=== PATIENT | female | born 1975 | race Caucasian/White ===

== ENCOUNTER → 2017-11-20 | Outpatient (CLI) | payer OTHER, BC ==
--- NOTE | 2017-11-20 12:45 | RAD ---
DATE: 11/20/2017 EXAM: MAMMO TYESHA SCREENING BILATERAL HISTORY: Routine screening COMPARISON: 11/06/2014 This study was interpreted with the benefit of Computerized Aided Detection (CAD). The breast parenchyma shows scattered fibroglandular densities. Breast parenchyma level B. FINDINGS: 2-D and 3-D tomosynthesis imaging was performed in CC and MLO projections. The fibroglandular tissues are heterogeneous and somewhat nodular in character. There is a smooth oval-shaped nodule with a hilar lucency in the inferomedial aspect of the left breast, most compatible with an intramammary lymph node. It appears to have been present on the previous study but is better delineated on the current 3-D view compared to the previous 2-D examination. There is an additional small elongated smooth nodule located just anterior to this first nodule in the lateral aspect of the left breast. No spiculated nodule or suspicious breast densities are seen. No suspicious microcalcifications are evident. IMPRESSION: There is no mammographic evidence of malignancy in either breast. Follow-up bilateral mammography in one year is suggested. BI-RADS CATEGORY: 2 BENIGN FINDING(S) RECOMMENDED FOLLOW-UP: 12M 12 MONTH FOLLOW-UP PQRS compliance statement: Patient information was entered into a reminder system with a target due date for the next mammogram. Mammography is a sensitive method for finding small breast cancers, but it does not detect them all and is not a substitute for careful clinical examination. A negative mammogram does not negate a clinically suspicious finding and should not result in delay in biopsying a clinically suspicious abnormality. "Our facility is accredited by the [employer] Mammography Program."
== END | disposition home or self-care (01) ==
LOC: MAMMO 08:14
PROVIDERS: ATTEND Nurse Practitioner Family
DX: Z12.31 Encounter for screening mammogram for malignant neoplasm of breast (principal)
CPT/HCPCS: 77063; 77067

== ENCOUNTER 2019-08-10 20:58 | Emergency (ER) | payer OTHER, BC ==
[~2019-08-10] VITALS: Ht 160 cm; Wt 74.4 kg
[2019-08-10] MEDS ORDERED: ACET500T68 PO (21:26)
[2019-08-10] MEDS ORDERED: MORPHINE SULFATE 4 MG/ML DISP.SYRIN. IV ONE ×2 (21:30→22:15)
[2019-08-10] MEDS ORDERED: IOHEXOL 300 MG/ML 75 ML VIAL. IV ONE (21:30)
[2019-08-10] MEDS ORDERED: CONTRAST GIVEN MC PRN (21:30)
[2019-08-10] MEDS ORDERED: ONDANSETRON PF 4 MG/2 ML VIAL. IVP ONE ×2 (21:30→22:15)
--- NOTE | 2019-08-10 21:34 | PHYS DOC ---
Adult General Chief Complaint Chief Complaint: ABDOMINAL PAIN HPI HPI 44-year-old female presents with right-sided abdominal pain. The patient had a tummy tuck and breast augmentation surgery about 3 weeks ago. She had her drain taken out 3 days ago. The day after the drain was removed she had some serosa nguineous fluid from the drain site, but that stopped. Yesterday the patient began to have right-sided abdominal pain and again to feel more full in the abdomen. Today it is much worse her pain is severe. She feels like she is very bloated and that there might be a mass on the right side along the incision site. She denies fever or chills. She called her surgeon and he advised she come to the emergency room. Review of Systems Review of Systems Constitutional: Denies fever or chills [] Eyes: Denies change in visual acuity, redness, or eye pain [] HENT: Denies nasal congestion or sore throat [] Respiratory: Denies cough or shortness of breath [] Cardiovascular: No additional information not addressed in HPI [] GI: Right lower quadrant abdominal pain [] : Denies dysuria or hematuria [] Musculoskeletal: Denies back pain or joint pain [] Integument: Denies rash or skin lesions [] Neurologic: Denies headache, focal weakness or sensory changes [] Endocrine: Denies polyuria or polydipsia [] All other systems were reviewed and found to be within normal limits, except as documented in this note. Current Medications Current Medications Current Medications Medications (Trade) Dose Ordered Sig/Rafi Start Time Stop Time Status Last Admin Dose Admin Info (Do NOT chart on this entry -- for MONITORING) 1 each PRN DAILY PRN 08/10/19 21:30 08/12/19 21:29 Iohexol (Omnipaque 300 Mg/ml) 75 ml 1X ONCE 08/10/19 21:30 08/10/19 21:31 Morphine Sulfate (Morphine 4mg Syringe) 4 mg 1X ONCE 08/10/19 21:30 08/10/19 21:31 Ondansetron HCl (Zofran) 4 mg 1X ONCE 08/10/19 21:30 08/10/19 21:31 Allergies Allergies Allergies Coded Allergies Type Severity Reaction Last Updated Verified No Known Drug Allergies 08/10/19 No Physical Exam Physical Exam Constitutional: Well developed, well nourished, no acute distress, non-toxic appearance. [] HENT: Normocephalic, atraumatic, bilateral external ears normal, oropharynx moist, no oral exudates, nose normal. [] Eyes: PERRLA, EOMI, conjunctiva normal, no discharge. [] Neck: Normal range of motion, no tenderness, supple, no stridor. [] Cardiovascular:Heart rate regular rhythm, no murmur [] Lungs & Thorax: Bilateral breath sounds clear to auscultation [] Abdomen: Bowel sounds normal, right lower quadrant with moderate to severe tenderness in possible palpable mass along the incision line. [] Skin: Clean dry and intact incisions of the lower abdomen, and bilateral breasts. No sign of cellulitis.[] Back: No tenderness, no CVA tenderness. [] Extremities: No tenderness, no cyanosis, no clubbing, ROM intact, no edema. [] Neurologic: Alert and oriented X 3, normal motor function, normal sensory function, no focal deficits noted. [] Psychologic: Affect normal, judgement normal, mood normal. [] EKG EKG [] Radiology/Procedures Radiology/Procedures [] Course & Med Decision Making Course & Med Decision Making Pertinent Labs and Imaging studies reviewed. (See chart for details) Asians labs are unremarkable. The CT of her abdomen and pelvis shows significant fluid collection, likely a seroma. I discussed these results with her surgeon, Dr. Flores and he has requested the patient be transferred to the emergency room at [facility]. The patient is in agreement with transfer to this facility. The transfer center for [facility] accepted the patient for transfer from ER to ER. Dr. Flores will see the patient in that emergency room. She will go by ambulance. [] Dragon Disclaimer Dragon Disclaimer This electronic medical record was generated, in whole or in part, using a voice recognition dictation system. Departure Departure: Impression: Primary Impression: Abdominal wall seroma Disposition: XFER SHT-TRM HOSP Condition: STABLE Referrals: ANJALI NGUYEN MD (PCP) Problem Qualifiers Primary Impression: Abdominal wall seroma Encounter type: initial encounter Qualified Codes: S30.1XXA - Contusion of abdominal wall, initial encounter BASHIR WINN DO Aug 10, 2019 21:34
[2019-08-10 21:51] LABS: BILIRUBIN,URINE NEG (NEG); CLARITY,URINE CLEAR; COLOR,URINE STRAW; GLUCOSE,URINE NEG (NEG)
[2019-08-10 21:52] LABS: BACTERIA,URINE FEW /HPF (0-FEW); NITRITE,URINE NEG (NEG); SQUAMOUS EPITHELIAL CELL,UR FEW /LPF; UROBILINOGEN,URINE 0.2 mg/dL (0.2 mg/dL); WBC,URINE OCC /HPF (0-4)
[2019-08-10 21:59] LABS: BASO % 1 % (0-3); EOS # 0.3 x10^3/uL (0.0-0.7); EOS % 3 % (0-3); HEMATOCRIT 38.4 % (36.0-47.0); LYMPH # 3.2 x10^3/uL (1.0-4.8); LYMPH % 34 % (24-48); MEAN CORPUSCULAR HEMOGLOBIN 32 pg (25-35); MEAN CORPUSCULAR HGB CONC 34 g/dL (31-37); MEAN CORPUSCULAR VOLUME 93 fL (79-100); MONO # 0.9 x10^3/uL (0.0-1.1); MONO % 10 % (0-9); NEUT # 4.8 x10^3uL (1.8-7.7); NEUT % 53 % (31-73); PLATELET COUNT 319 x10^3/uL (140-400); RED BLOOD COUNT 4.12 x10^6/uL (3.50-5.40); RED CELL DISTRIBUTION WIDTH 13.5 % (11.5-14.5); WHITE BLOOD COUNT 9.2 x10^3/uL (4.0-11.0)
[2019-08-10 22:18] LABS: CALCIUM 8.4 mg/dL (8.5-10.1); CREATININE 0.6 mg/dL (0.6-1.0); GFR 108.1; POTASSIUM 3.7 mmol/L (3.5-5.1)
[2019-08-10 22:24] LABS: ALBUMIN 3.5 g/dL (3.4-5.0); ALBUMIN/GLOBULIN RATIO 0.9 (1.0-1.7); TOTAL BILIRUBIN 0.1 mg/dL (0.2-1.0); TOTAL PROTEIN 7.3 g/dL (6.4-8.2)
--- NOTE | 2019-08-10 22:56 | RAD ---
Examination: CT ABD PELV W/ IV CONTRST ONLY History: Right lower quadrant pain. Recent plastic surgery. Comparison/Correlation: None Findings: Axial images of the abdomen and pelvis were obtained following IV contrast. Sagittal and coronal reformatted images were provided. Bilateral breast implants are partially seen. Visualized lung bases are clear. Liver, spleen, pancreas, and adrenal glands are normal. Gallbladder fossa is unremarkable. Right kidney is unremarkable. Left renal lower pole calyceal calculus measuring 0.56 cm diameter noted. There are 2 additional small calculi present in the left lower pole calyces. Left renal lesions which additional characterize probably representing cysts are present. Minimal fullness of the left renal pelvis noted. Urinary bladder unremarkable. Diverticulosis of the colon is present. No inflammatory change about the cecum. Appendix is normal. Hysterectomy noted. Small umbilical hernia contains mesenteric fat. Fluid collection at the right lower flank region is present measuring 4.3 cm longitudinal by 13.5 cm anteroposterior by by 3 cm transverse. It is of simple fluid density. At the left lateral flank region within the subcutaneous fat at the iliac crest level, there is a 2 cm maximum diameter collection. Small fluid collection is present at the left infraumbilical region measuring up to 1.1 cm. No suspicious enhancement identified to involve the collections. Impression: Postoperative seroma or other fluid collection involving the right lower flank subcutaneous fat region at the level of the right iliac crest. Additional smaller collections also seen at other sites. No rim enhancement to suggest abscess or inflammatory components. Appendix is normal. Nonobstructive left renal calculi. Diverticulosis. PQRS Compliance Statement: One or more of the following individualized dose reduction techniques were utilized for this examination: 1. Automated exposure control 2. Adjustment of the mA and/or kV according to patient size 3. Use of iterative reconstruction technique Electronically signed by: Jarrett Saenz MD (08/10/2019 10:53 PM) [facility]
[2019-08-10] MEDS ORDERED: HYDROmorphone PF 2 MG/ML VIAL IV ONE (23:15)
[2019-08-11] MEDS ORDERED: PROCHLORPERAZINE 10 MG/2 ML VIAL. ONE (01:05)
[2019-08-11] MEDS ORDERED: PROCHLORPERAZINE 10 MG/2 ML VIAL. IV ONE (01:15)
[2019-08-11 02:25] VITALS: BP 110/65
[2019-08-11] MEDS ORDERED: HYDROmorphone PF 2 MG/ML VIAL IV ONE (02:30)
== END 2019-08-11 02:28 | disposition short-term general hospital (02) ==
LOC: ER 20:58
DX: S30.1XXA Contusion of abdominal wall, initial encounter (principal); Z98.890 Other specified postprocedural states; X58.XXXA Exposure to other specified factors, initial encounter; Y93.89 Activity, other specified; Y92.89 Other specified places as the place of occurrence of the external cause; Y99.8 Other external cause status
CPT/HCPCS: 36415; 74177; 80053; 81001; 85025; 96374; 96375; 96376; 99285; J0780; J1170; J2270; J2405; Q9967

== ENCOUNTER 2019-10-09 14:16 | Emergency (ER) | payer OTHER, BC ==
[~2019-10-09] VITALS: Ht 160 cm; Wt 75.1 kg
[~2019-10-09 14:16] MED LIST: ACET500T68 PO
[2019-10-09] MEDS ORDERED: IV NORMAL SALINE 1,000ML 1,000 ML IV SCH (14:24)
[2019-10-09] MEDS ORDERED: KETOROLAC 30 MG/ML VIAL. IVP ONE (14:30)
[2019-10-09] MEDS ORDERED: ONDANSETRON PF 4 MG/2 ML VIAL. IVP ONE (14:30)
[2019-10-09] MEDS: HYDROmorphone PF 1 MG/ML DISP.SYRIN IV/SQ PRN ×4 (14:39→16:58)
[2019-10-09 14:52] LABS: BASO % 1 % (0-3); EOS # 0.3 x10^3/uL (0.0-0.7); EOS % 3 % (0-3); HEMATOCRIT 43.2 % (36.0-47.0); HEMOGLOBIN 14.1 g/dL (12.0-15.5); LYMPH # 2.4 x10^3/uL (1.0-4.8); LYMPH % 27 % (24-48); MEAN CORPUSCULAR HEMOGLOBIN 30 pg (25-35); MEAN CORPUSCULAR HGB CONC 33 g/dL (31-37); MEAN CORPUSCULAR VOLUME 93 fL (79-100); MONO # 0.7 x10^3/uL (0.0-1.1); MONO % 8 % (0-9); NEUT # 5.3 x10^3uL (1.8-7.7); NEUT % 61 % (31-73); PLATELET COUNT 272 x10^3/uL (140-400); RED BLOOD COUNT 4.66 x10^6/uL (3.50-5.40); RED CELL DISTRIBUTION WIDTH 13.1 % (11.5-14.5); WHITE BLOOD COUNT 8.7 x10^3/uL (4.0-11.0)
[2019-10-09 15:06] LABS: ALBUMIN/GLOBULIN RATIO 1.1 (1.0-1.7); CALCIUM 9.5 mg/dL (8.5-10.1); CREATININE 0.7 mg/dL (0.6-1.0); GFR 90.5; POTASSIUM 3.7 mmol/L (3.5-5.1); TOTAL BILIRUBIN 0.2 mg/dL (0.2-1.0); TOTAL PROTEIN 7.8 g/dL (6.4-8.2)
[2019-10-09 15:28] LABS: BILIRUBIN,URINE NEG (NEG); CLARITY,URINE CLEAR; COLOR,URINE YELLOW; GLUCOSE,URINE NEG (NEG)
[2019-10-09 15:29] LABS: BACTERIA,URINE FEW /HPF (0-FEW); NITRITE,URINE NEG (NEG); SQUAMOUS EPITHELIAL CELL,UR FEW /LPF; UROBILINOGEN,URINE 0.2 mg/dL (0.2 mg/dL); WBC,URINE OCC /HPF (0-4)
--- NOTE | 2019-10-09 15:40 | RAD ---
CT STUDY OF THE ABDOMEN AND PELVIS WITHOUT CONTRAST CLINICAL INDICATIONS: Flank pain. Possible urinary tract stone. TECHNIQUE: Noncontrast helical CT scanning of the abdomen and pelvis was performed. Without contrast, the sensitivity to detect organ pathology and GI tract pathology is decreased. PQRS compliance Statement One or more of the following individualized dose reduction techniques were utilized for this study: 1. Automated exposure control 2. Adjustment of the mA and/or kV according to patient size 3. Use of iterative reconstruction technique COMPARISON: August 10, 2019. FINDINGS: The liver and spleen and pancreas are homogeneous in appearance on this noncontrast study. Gallbladder is normal and no extrahepatic biliary ductal dilatation is seen. No adrenal mass is evident. Medullary sponge kidney is seen bilaterally. Small stones of the lower pole of the left kidney are seen. There is moderate hydronephrosis and hydroureter all way down to the UVJ on the left side. At the UVJ, there is a stone measuring 5 mm in size. No hydronephrosis or hydroureter is seen on the right side. Urinary bladder is moderately distended and the urinary bladder wall is smooth. Uterus appears surgically absent. There is a left ovarian cyst measuring 27 mm in size. This is new. Small amount of free fluid is seen within the cul-de-sac around the vaginal cuff. The appendix is normal. No obstructive bowel pattern is seen. No free intraperitoneal air is seen. No mesenteric edema is seen. No focal aneurysmal dilatation of the abdominal aorta is seen. No enlarged abdominal or pelvic lymphadenopathy is evident. No lung base consolidation is evident. No lytic process is seen. IMPRESSION: Moderate left-sided hydronephrosis and hydroureter due to a 5 mm distal left ureteral stone at the UVJ. There are 2 additional small stones of the left kidney. Medullary sponge kidney bilaterally. New finding of 27 mm left ovarian cyst with a small amount of free fluid in the cul-de-sac. Electronically signed by: Gorge Arriaza MD (10/09/2019 3:37 PM) [facility]
--- NOTE | 2019-10-09 15:51 | PHYS DOC ---
Past History Past Medical History: GERD, Kidney Stones, Migraines, UTI Past Surgical History: Hysterectomy, Tonsillectomy, Other Additional Past Surgical Histo: trigger finger release on rt thumb Alcohol Use: Rarely Drug Use: None Adult General Chief Complaint Chief Complaint: PAIN ON URINATION [facility] HPI Patient is a 44-year-old female who presents with complaint of lower abdominal discomfort, feeling like she has to urinate but is having difficulty with urination. Patient states she has a history of kidney stones and is worried that she may have another kidney stone again. Patient has had to have lithotripsy 3 in the past. Patient rates her pain at an 8 out of 10 and states that she has also had some nausea. She is had no vomiting however. Patient denies any fever. She does indicate that the pain radiates into her back at times.[] Review of Systems Review of Systems Constitutional: Denies fever or chills [] Respiratory: Denies cough or shortness of breath [] Cardiovascular: No additional information not addressed in HPI [] GI: Complains of lower abdominal pain with nausea. Denies vomiting or diarrhea [] : Complains of dysuria[] Musculoskeletal: Complains of lower back pain pain [] All other systems were reviewed and found to be within normal limits, except as documented in this note. Current Medications Current Medications Current Medications Medications (Trade) Dose Ordered Sig/[facility] Start Time Stop Time Status Last Admin Dose Admin Hydromorphone HCl (Dilaudid) 0.5 mg PRN Q15MIN PRN 10/09/19 14:30 10/10/19 14:29 10/09/19 14:39 0.5 MG Ketorolac Tromethamine (Toradol 30mg Vial) 30 mg 1X ONCE 10/09/19 14:30 10/09/19 14:48 DC 10/09/19 14:40 30 MG Ondansetron HCl (Zofran) 4 mg 1X ONCE 10/09/19 14:30 10/09/19 14:48 DC 10/09/19 14:39 4 MG Sodium Chloride 1,000 ml @ 1,000 mls/hr Q1H 10/09/19 14:24 10/09/19 15:23 DC 10/09/19 14:39 1,000 MLS/HR Allergies Allergies Allergies Coded Allergies Type Severity Reaction Last Updated Verified No Known Drug Allergies 08/10/19 No Physical Exam Physical Exam Constitutional: Well developed, well nourished, no acute distress, non-toxic appearance. [] HENT: Normocephalic, atraumatic, bilateral external ears normal, oropharynx moist, no oral exudates, nose normal. [] Eyes: PERRLA, EOMI, conjunctiva normal, no discharge. [] Neck: Normal range of motion, no tenderness, supple. [] Cardiovascular:Heart rate regular rhythm, no murmur [] Lungs & Thorax: Bilateral breath sounds clear to auscultation [] Abdomen: Bowel sounds normal, soft, with suprapubic tenderness. [] Skin: Warm, dry, no erythema, no rash. [] Extremities: No tenderness, no cyanosis, no clubbing, ROM intact, no edema. [] Neurologic: Alert and oriented X 3, normal motor function, normal sensory function, no focal deficits noted. [] Current Patient Data Vital Signs Vital Signs Date Time Temp Pulse Resp B/P (MAP) Pulse Ox O2 Delivery O2 Flow Rate FiO2 10/09/19 14:16 98.0 84 22 147/78 (101) 99 Room Air Lab Results Laboratory Tests Test 10/09/19 14:33 10/09/19 15:05 White Blood Count 8.7 x10^3/uL (4.0-11.0) Red Blood Count 4.66 x10^6/uL (3.50-5.40) Hemoglobin 14.1 g/dL (12.0-15.5) Hematocrit 43.2 % (36.0-47.0) Mean Corpuscular Volume 93 fL (79-100) Mean Corpuscular Hemoglobin 30 pg (25-35) Mean Corpuscular Hemoglobin Concent 33 g/dL (31-37) Red Cell Distribution Width 13.1 % (11.5-14.5) Platelet Count 272 x10^3/uL (140-400) Neutrophils (%) (Auto) 61 % (31-73) Lymphocytes (%) (Auto) 27 % (24-48) Monocytes (%) (Auto) 8 % (0-9) Eosinophils (%) (Auto) 3 % (0-3) Basophils (%) (Auto) 1 % (0-3) Neutrophils # (Auto) 5.3 x10^3uL (1.8-7.7) Lymphocytes # (Auto) 2.4 x10^3/uL (1.0-4.8) Monocytes # (Auto) 0.7 x10^3/uL (0.0-1.1) Eosinophils # (Auto) 0.3 x10^3/uL (0.0-0.7) Basophils # (Auto) 0.0 x10^3/uL (0.0-0.2) Sodium Level 141 mmol/L (136-145) Potassium Level 3.7 mmol/L (3.5-5.1) Chloride Level 103 mmol/L (98-107) Carbon Dioxide Level 27 mmol/L (21-32) Anion Gap 11 (6-14) Blood Urea Nitrogen 12 mg/dL (7-20) Creatinine 0.7 mg/dL (0.6-1.0) Estimated GFR (Cockcroft-Gault) 90.5 BUN/Creatinine Ratio 17 (6-20) Glucose Level 88 mg/dL (70-99) Calcium Level 9.5 mg/dL (8.5-10.1) Total Bilirubin 0.2 mg/dL (0.2-1.0) Aspartate Amino Transferase (AST) 21 U/L (15-37) Alanine Aminotransferase (ALT) 26 U/L (14-59) Alkaline Phosphatase 72 U/L (46-116) Total Protein 7.8 g/dL (6.4-8.2) Albumin 4.0 g/dL (3.4-5.0) Albumin/Globulin Ratio 1.1 (1.0-1.7) Urine Collection Type Unknown Urine Color Yellow Urine Clarity Clear Urine pH 7.5 Urine Specific [place] 1.020 Urine Protein Neg (NEG-TRACE) Urine Glucose (UA) Neg mg/dL (NEG) Urine Ketones (Stick) Neg mg/dL (NEG) Urine Blood Trace (NEG) Urine Nitrite Neg (NEG) Urine Bilirubin Neg (NEG) Urine Urobilinogen Dipstick 0.2 mg/dL (0.2 mg/dL) Urine Leukocyte Esterase Neg (NEG) Urine RBC 1-2 /HPF (0-2) Urine WBC Occ /HPF (0-4) Urine Squamous Epithelial Cells Few /LPF Urine Bacteria Few /HPF (0-FEW) EKG EKG [] Radiology/Procedures Radiology/Procedures [] Impressions: PROCEDURE: CT ABDOMEN PELVIS WO CONTRAST CT STUDY OF THE ABDOMEN AND PELVIS WITHOUT CONTRAST CLINICAL INDICATIONS: Flank pain. Possible urinary tract stone. TECHNIQUE: Noncontrast helical CT scanning of the abdomen and pelvis was performed. Without contrast, the sensitivity to detect organ pathology and GI tract pathology is decreased. PQRS compliance Statement One or more of the following individualized dose reduction techniques were utilized for this study: 1. Automated exposure control 2. Adjustment of the mA and/or kV according to patient size 3. Use of iterative reconstruction technique COMPARISON: August 10, 2019. FINDINGS: The liver and spleen and pancreas are homogeneous in appearance on this noncontrast study. Gallbladder is normal and no extrahepatic biliary ductal dilatation is seen. No adrenal mass is evident. Medullary sponge kidney is seen bilaterally. Small stones of the lower pole of the left kidney are seen. There is moderate hydronephrosis and hydroureter all way down to the UVJ on the left side. At the UVJ, there is a stone measuring 5 mm in size. No hydronephrosis or hydroureter is seen on the right side. Urinary bladder is moderately distended and the urinary bladder wall is smooth. Uterus appears surgically absent. There is a left ovarian cyst measuring 27 mm in size. This is new. Small amount of free fluid is seen within the cul-de-sac around the vaginal cuff. The appendix is normal. No obstructive bowel pattern is seen. No free intraperitoneal air is seen. No mesenteric edema is seen. No focal aneurysmal dilatation of the abdominal aorta is seen. No enlarged abdominal or pelvic lymphadenopathy is evident. No lung base consolidation is evident. No lytic process is seen. IMPRESSION: Moderate left-sided hydronephrosis and hydroureter due to a 5 mm distal left ureteral stone at the UVJ. There are 2 additional small stones of the left kidney. Medullary sponge kidney bilaterally. New finding of 27 mm left ovarian cyst with a small amount of free fluid in the cul-de-sac. Electronically signed by: Earl Arriaza MD (10/09/2019 3:37 PM) [facility] DICTATED AND SIGNED BY: EARL ARRIAZA MD DATE: 10/09/19 1537 CC: REGINE OSORIO Jr. DO; ANJALI NGUYEN MD ~ Course & Med Decision Making Course & Med Decision Making Pertinent Labs and Imaging studies reviewed. (See chart for details) [] Dragon Disclaimer Dragon Disclaimer This electronic medical record was generated, in whole or in part, using a voice recognition dictation system. Departure Departure: Impression: Primary Impression: Ureterolithiasis Disposition: 01 HOME, SELF-CARE Condition: STABLE Referrals: ANJALI NGUYEN MD (PCP) Patient Instructions: Kidney Stones Scripts Ketorolac Tromethamine (KETOROLAC TROMETHAMINE) 10 Mg Tablet 1 TAB PO PRN Q6HRS for pain, #20 TAB Prov: REGINE OSORIO Jr. DO 10/09/19 Ondansetron (ONDANSETRON ODT) 4 Mg Tab.rapdis 1 TAB PO PRN Q6-8HRS PRN for NAUSEA, #12 TAB Prov: REGINE OSORIO Jr. DO 10/09/19 Tamsulosin Hcl (FLOMAX) 0.4 Mg Cap.er.24h 1 CAP PO DAILY for kidney stone, #10 CAP Prov: REGINE OSORIO Jr. DO 10/09/19 Oxycodone Hcl/Acetaminophen (PERCOCET 10-325 MG TABLET ) 1 Each Tablet 1 TAB PO PRN QID PRN for PAIN MDD 4 Tablet(s) for 5 Days, #20 TAB 0 Refills Prov: REGINE OSORIO Jr. DO 10/09/19 REGINE OSORIO Jr. DO Oct 09, 2019 15:51
[2019-10-09] MEDS ORDERED: TAMSULOSIN 0.4 MG CAP.ER.24H. PO ONE (16:00)
[2019-10-09] MEDS ORDERED: OXYC1TAB22 PO (16:50)
[2019-10-09] MEDS ORDERED: ONDA4TAB12 PO (16:50)
[2019-10-09] MEDS ORDERED: TAMS0.4C97 PO (16:50)
[2019-10-09] MEDS ORDERED: KETO10TA PO (16:50)
[2019-10-09 17:06] VITALS: BP 129/77
[2019-10-09] MEDS ORDERED: PHEN100T82 PO (17:32)
== END 2019-10-09 17:30 | disposition home or self-care (01) ==
LOC: ER 14:16
DX: N13.2 Hydronephrosis with renal and ureteral calculous obstruction (principal); K21.9 Gastro-esophageal reflux disease without esophagitis; Z87.442 Personal history of urinary calculi; Z87.440 Personal history of urinary (tract) infections; G43.909 Migraine, unspecified, not intractable, without status migrainosus; Z90.710 Acquired absence of both cervix and uterus
CPT/HCPCS: 36415; 74176; 80053; 81001; 85025; 96374; 96375; 96376; 99284; J1170; J1885; J2405; J7030

== ENCOUNTER 2021-05-16 15:37 | Emergency (ER) | payer OTHER, BC ==
[~2021-05-16] VITALS: Ht 160 cm; Wt 75.1 kg
[~2021-05-16 15:37] MED LIST changes: +KETO10TA PO; +ONDA4TAB12 PO; +OXYC1TAB22 PO; +PHEN100T82 PO; +TAMS0.4C97 PO
[2021-05-16 15:40] VITALS: BP 154/97
[2021-05-16] MEDS ORDERED: METOCLOPRAMIDE HCL 10 MG/2 ML VIAL. IVP ONE (15:45)
[2021-05-16] MEDS ORDERED: KETOROLAC 30 MG/ML VIAL. IVP ONE (15:45)
[2021-05-16] MEDS ORDERED: diphenhydrAMINE 50 MG/ML VIAL IVP ONE (15:45)
[2021-05-16] MEDS ORDERED: IV NORMAL SALINE 1,000ML 1,000 ML IV ONE (15:45)
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
[2021-05-16 16:41] LABS: BASO # 0.1 x10^3/uL (0.0-0.2); BASO % 1 % (0-3); EOS % 1 % (0-3); HEMATOCRIT 41.8 % (36.0-47.0); HEMOGLOBIN 14.1 g/dL (12.0-15.5); LYMPH % 22 % (24-48); MEAN CORPUSCULAR HEMOGLOBIN 31 pg (25-35); MEAN CORPUSCULAR HGB CONC 34 g/dL (31-37); MEAN CORPUSCULAR VOLUME 92 fL (79-100); MONO # 0.7 x10^3/uL (0.0-1.1); MONO % 8 % (0-9); NEUT # 6.2 x10^3uL (1.8-7.7); NEUT % 69 % (31-73); PLATELET COUNT 241 x10^3/uL (140-400); RED BLOOD COUNT 4.55 x10^6/uL (3.50-5.40); RED CELL DISTRIBUTION WIDTH 13.8 % (11.5-14.5)
[2021-05-16 16:57] LABS: BACTERIA,URINE 0 /HPF (0-FEW); BILIRUBIN,URINE NEG (NEG); CLARITY,URINE CLEAR; COLOR,URINE YELLOW; GLUCOSE,URINE NEG (NEG); NITRITE,URINE NEG (NEG); RBC,URINE 0 /HPF (0-2); SQUAMOUS EPITHELIAL CELL,UR OCC /LPF; UROBILINOGEN,URINE 0.2 mg/dL (0.2 mg/dL); WBC,URINE 0 /HPF (0-4)
[2021-05-16 16:59] LABS: CALCIUM 8.7 mg/dL (8.5-10.1); CREATININE 0.6 mg/dL (0.6-1.0); GFR 107.2; POTASSIUM 3.9 mmol/L (3.5-5.1)
[2021-05-16 17:10] LABS: ALBUMIN 3.7 g/dL (3.4-5.0); ALBUMIN/GLOBULIN RATIO 1.2 (1.0-1.7); TOTAL BILIRUBIN 0.4 mg/dL (0.2-1.0); TOTAL PROTEIN 6.8 g/dL (6.4-8.2)
== END 2021-05-16 18:02 | disposition home or self-care (01) ==
LOC: ER 15:37
DX: S80.01XA Contusion of right knee, initial encounter (principal); K21.9 Gastro-esophageal reflux disease without esophagitis; Z90.710 Acquired absence of both cervix and uterus; Z87.442 Personal history of urinary calculi; V43.52XA Car driver injured in collision with other type car in traffic accident, initial encounter; Y93.89 Activity, other specified; Y92.488 Other paved roadways as the place of occurrence of the external cause; Y99.8 Other external cause status
CPT/HCPCS: 36415; 73564; 80053; 81001; 85025; 96361; 96374; 96375; 99284; J1200; J1885; J2765; J7030

== ENCOUNTER → 2021-05-31 | Outpatient (CLI) | payer OTHER ==
[2021-05-16 15:40] VITALS: BP 154/97
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
== END ==
LOC: CT 08:07
PROVIDERS: ATTEND Family Medicine
DX: R51.9 Headache, unspecified (principal)
CPT/HCPCS: 70450